=== PATIENT | male | born 1980 | race Caucasian/White ===

== ENCOUNTER 2018-05-02 20:32 | Emergency (ER) | payer BC ==
[~2018-05-02] VITALS: Ht 170.2 cm; Wt 78.9 kg
[2018-05-02 20:51] VITALS: Ht 170.2 cm; Wt 78.9 kg
[2018-05-02 22:40] VITALS: BP 137/84
== END 2018-05-02 22:40 | disposition home or self-care (01) ==
LOC: ED 20:32
DX: T23.232A Burn of second degree of multiple left fingers (nail), not including thumb, initial encounter (principal); X10.2XXA Contact with fats and cooking oils, initial encounter; Y93.G3 Activity, cooking and baking; Y92.090 Kitchen in other non-institutional residence as the place of occurrence of the external cause; Y99.8 Other external cause status